=== PATIENT | male | born 1950 | race Caucasian/White ===

== ENCOUNTER → 2016-09-19 | Outpatient (CLI) | payer OTHER, MEDICARE ==
--- NOTE | 2016-09-19 10:43 | MR ---
MRI Cervical Spine Without Contrast dated September 19, 2016 Indication: Severe weakness left arm. Radiculopathy. Evaluate for cord compression. Technique: Sagittal T2, T1 and STIR weighted imaging through the cervical spine. Stacked axial T2-carolyn ghted imaging was obtained from the foramen magnum through the superior endplate of T1. Comparison: MRI cervical spine dated February 05, 2015. Findings: Bone marrow signal and alignment are unchanged since 2014. Diskogenic Modic changes persist at C2-C3, C4-C5, C6-C7, and C7-T1. No fracture or bone marrow replacing lesion has developed. The pa raspinal soft tissues are within normal limit. The cervicooccipital junction is normal. Spinal cord h as normal caliber and signal. No syrinx or cord edema has developed. C1-C2: Widely patent central canal. C2-C3: Progressive disk height loss. The previous broad-based disk bulge has completely resolved. The central canal is widely patent. Moderate left and mild right neural foraminal narrowing due to facet hypertrophy and uncovertebral spurs is unchanged. No disk herniation has developed. C3-C4: Severe bilateral neural foraminal stenosis due to uncovertebral and facet spurs is unchanged. Disk desiccation and minimal central canal narrowing is unchanged. C4-C5: Severe bilateral neural foraminal stenosis and mild to moderate central canal stenosis due to grade 1 retrolisthesis of C4 on C5, diffuse broad-based disk bulge and uncovertebral and facet spurs is unchanged. The thecal sac measures 9 mm AP (unchanged). C5-C6: The mild to moderate central canal narrowing and broad-based osteophyte disk complex abutting the left ventrolateral aspect of the cord and severe bilateral neural foraminal narrowing due to unco vertebral and facet spurs are all unchanged. Central canal measures 8 to 9 mm AP (unchanged). C6-C7: Moderate central canal narrowing at C6-C7 is minimally worse since 2015 due to a diffuse broad -based posterior osteophyte disk complex, ligamentum flavum thickening, and facet hypertrophy. The ce ntral canal measures 7 mm AP (previously 8 to 9 mm). The osteophyte disk complex abuts, yet does not deform the ventral aspect of the spinal cord. Severe bilateral neural foraminal narrowing is unchange d. C7-T1: Moderate bilateral neural foraminal narrowing, worse right than left, due to uncovertebral and facet spurs is unchanged. Minimal central canal narrowing due to broad-based osteophyte disk complex is unchanged. Impression: 1. Severe bilateral neural foraminal stenosis extending from C3-C4 to C6-C7 has not significantly aislinn nged since January 2015. 2. Moderate central canal narrowing at C5-C6 is minimally worse since 2014 due to diffuse broad-based disk bulge, ligamentum flavum and facet hypertrophy. 3. Mild to moderate central canal narrowing at C4-C5 and C5-C6 is unchanged since 2014. 4. No spinal cord compression, gliosis, or atrophy has developed.
== END ==
LOC: FIMAGING 08:56
PROVIDERS: ATTEND Physical Medicine & Rehabilitation
DX: M48.02 Spinal stenosis, cervical region (principal)

== ENCOUNTER → 2017-03-04 | Outpatient (CLI) | payer OTHER, MEDICARE ==
[~2017-03-04] MED LIST: GADOBUTROL 10 ML VIAL IVP ONE
[2017-03-04 08:49] LABS: GLOMERULAR FILTRATION RATE > 60
== END ==
LOC: FIMAGING 07:56
PROVIDERS: ATTEND Psychiatry & Neurology Neurology
DX: H53.2 Diplopia (principal); R94.02 Abnormal brain scan
CPT/HCPCS: 70553; A9585